=== PATIENT | male | born 1995 | race Caucasian/White ===

== ENCOUNTER → 2018-03-31 13:05 | Outpatient (CLI) | payer BC, SELFPAY ==
[2018-04-03 20:07] LABS: QNTFERON TB Ag Minus Nil Value 0.02 IU/mL (.); QNTFERON TB Ag Value 0.04 IU/mL (.); QNTFERON TB Mitogen Value > 10.00 IU/mL (.); QNTFERON TB Nil Value 0.02 IU/mL (.)
[2018-04-04 10:51] LABS: QNTIFERON TB Gold Negative (Negative)
== END ==
PROVIDERS: Family Provider Family Medicine; PCP Family Medicine; Visit Provider Family Medicine
DX: Z11.1 Encounter for screening for respiratory tuberculosis (principal)
CPT/HCPCS: 36415; 86480

== ENCOUNTER → 2019-01-05 12:22 | Outpatient (CLI) | payer BC, SELFPAY ==
--- NOTE | 2019-01-05 12:28 | US_ITS ---
STUDY: Ultrasound neck soft tissues REASON FOR EXAM: Male, 23 years old. Lump TECHNIQUE: Grayscale and color Doppler sonography of the right neck soft tissues. Impression and left neck soft tissues for comparison. COMPARISON: None. FINDINGS: Right neck palpable lump, submandibular, lymph node measuring 13 x 9 x 20 mm. Small adjacent lymph node measuring approximately 7 mm, and another measuring approximately 11 mm. Adjacent, probably the submandibular gland, measuring approximately 3.5 x 1.6 x 3.1 cm. In the left neck the submandibular gland measures approximate 4.4 x 1.8 x 2.9 cm. Each submandibular gland has homogeneous normal features without apparent inflammation on Doppler views. US/Head/Neck Soft Tissue IMPRESSION: Mildly enlarged lymph node overlying the right submandibular gland. Each submitted to better gland is relatively symmetric and normal features. Electronically Signed: Elias Ngo MD at 13:46 EST Tel , Service support ,
== END ==
PROVIDERS: Family Provider Family Medicine; PCP Family Medicine; Referring Provider Family Medicine; Visit Provider Family Medicine
DX: K11.21 Acute sialoadenitis (principal)
CPT/HCPCS: 76536

== ENCOUNTER → 2019-01-19 13:42 | Outpatient (CLI) | payer BC, SELFPAY ==
[2019-01-19 14:45] LABS: Absolute Lymphocyte Count 1.78 X10^3/ul (0.83-4.51); Absolute Neutrophil Count 2.1 X10^3/uL (2.0-7.7); Basophil# 0.01 X10^3/uL; Basophil% 0.2 % (0-1); Hematocrit 46.1 % (40-54); Hemoglobin 15.4 g/dl (13.0-16.5); Lymphocyte # 1.78 X10^3/ul (4.0); Lymphocyte % 41.3 % (19-41); Mean Corp Hgb Conc 33.4 g/gl (32-36); Mean Corpuscular Hgb 28.8 pg (27.0-32.0); Mean Corpuscular Volume 86.3 fL (80-94); Mean Platelet Vol. 9.7 fl (6.2-12.0); Monocyte# 0.39 X10^3/uL; Neutrophil # 2.13 X10^3/uL (2.7-7.7); Neutrophil % 49.5 % (47-70); Platelet Count 225 K/mm3 (150-450); RBC Distribution Width CV 12.4 % (11.6-14.6); RBC Distribution Width SD 39.6 fl (35.1-43.9); Red Blood Count 5.34 M/mm3 (4.6-6.2); White Blood Count 4.3 K/mm3 (4.4-11.0)
[2019-01-19 14:49] LABS: POSITIVE COUNT NO; POSITIVE DIFFERENTIAL NO; POSITIVE MORPHOLOGY NO
[2019-01-19 14:50] LABS: Erythrocyte Sedimentation Rate 1 mm/hr (0-15)
[2019-01-19 15:10] LABS: ALB/GLOB Ratio 1.5 RATIO (0.9-2.4); AST(SGOT) 21 U/L (15-37); Alanine Aminotransfer ALT/SGPT 29 U/L (16-61); Albumin, Serum 4.5 g/dL (3.2-5.0); Alkaline Phosphatase 69 U/L (45-117); Anion Gap 7 (5-15); BUN 14 mg/dL (7-18); BUN/Creat Ratio 15.2 RATIO (10-20); CRP < 2.90 mg/L (0.0-3.0); Calcium,Total 9.1 mg/dL (8.5-10.1); Chloride 105 mmol/L (98-107); Creatinine, Serum 0.92 mg/dL (0.70-1.30); EST Glomerular Filtration Rate 108 mL/min (>60); Est Glom Filt Rate - Afr Amer 131 mL/min (>60); Globulin 3.1 g/dL (2.2-4.2); Glucose 61 mg/dL (74-106); Potassium 3.7 mmol/L (3.5-5.1); Protein, Total 7.6 g/dL (6.4-8.2); Sodium Level 141 mmol/L (136-145)
== END ==
PROVIDERS: Family Provider Family Medicine; PCP Family Medicine; Visit Provider Family Medicine
DX: R22.1 Localized swelling, mass and lump, neck (principal)
CPT/HCPCS: 36415; 80053; 85025; 85652; 86140

== ENCOUNTER → 2019-01-22 11:48 | Outpatient (CLI) | payer BC, SELFPAY ==
[2019-01-22 17:39] LABS: Free T3 3.6 pg/mL (2.18-3.98); Thyroid Stim Hormone (TSH) 1.28 uIU/mL (0.358-3.74)
== END ==
PROVIDERS: Family Provider Family Medicine; PCP Family Medicine; Visit Provider Family Medicine
DX: R22.1 Localized swelling, mass and lump, neck (principal); R63.4 Abnormal weight loss
CPT/HCPCS: 36415; 84439; 84443; 84481

== ENCOUNTER → 2019-03-30 | Outpatient (CLI) | payer BC, SELFPAY ==
--- NOTE | 2019-03-30 | IMM_PTH ---
PATIENT: RICCO LAURENT LOC: [facility] U#:[id number] AGE/SX: 23/M ROOM: RE03/30/[address]: Dr. Camilo Jovel DO : 1995 BED: DIS: 03/30/2019 SPEC #: [id number] RECD: 04/01/19 10:38 STATUS: HENOK RESocrates #: [id number] ESTEFANI: 03/30/19 00:[address]: Camilo Jovel DEPT: IMMUNOHISTOCHEMISTRY RECD BY: Marah Dela Cruz Tissues: Skin of back, NOS Procedures: MACRO (add) Vimentin (add) Pankeratin (initial) MELAN-A (add) P40 (add) S-100 (add) PHYSICIAN & INSTITUTION [place] [id number] SPECIMEN INFORMATION: Tissue Source: Right upper back Clinical Info: Enlarging nevus Specimen Number: [id number] CPT code: 45246, 86320 x5 METHODOLOGY: Deparaffinized sections of prefer/formalin-fixed tissue or PAP/DQ stained slides are incubated with monoclonal/polyclonal antibodies/oligonucleotide probes. Localization is made via biotin free immunoperoxidase method. Appropriate controls are performed and reacted as expected. Results on target cell population are indicated in the following table: RESULTS: ANTIBODY / CLONE RESULT AE1-3 (AE1/AE3/PCK26) negative P40 (BC28) negative Vimentin (V9) positive S-100 (4C4.9) positive Melan A (A103) positive, dim Macro (HAM-56) negative These tests were developed and their performance characteristics determined by [facility]. They may not have been cleared or approved by the U.[place]. Food and Drug Administration. The FDA has determined that such clearance or approval is not necessary. INTERPRETATION: Right upper back, punch biopsy: Intradermal nevus. AM:aleksandra 04/02/19
--- NOTE | 2019-03-30 15:10 | LES_PTH ---
PATIENT: RICCO LAURENT LOC: [facility] U#:[id number] AGE/SX: 23/M ROOM: RE03/30/[address]: Dr. Camilo Jovel DO : 1995 BED: DIS: 03/30/2019 SPEC #: [id number] RECD: 03/30/19 15:10 STATUS: HENOK LUKE #: [id number] ESTEFANI: 03/30/19 15:[address]: Camilo Jovel DEPT: SURGICAL PATHOLOGY RECD BY: Rahat Olmos Tissues: Skin of back, NOS Procedures: Surgery Specimen Level IV HEADER OPERATION: Punch biopsy PRE-OP DIAGNOSIS: Enlarging nevus TISSUE SUBMITTED: 5 mm punch right upper back (favor benign) MICROSCOPIC DIAGNOSIS Right upper back skin lesion, punch biopsy: Consistent with intradermal nevus. AM:aleksandra 04/02/19 COMMENT Immunohistochemistry ([id number]) supports the above diagnosis. MICROSCOPIC DESCRIPTION Slides are reviewed. GROSS DESCRIPTION Received is one container labeled with the patient's name and not further designated. The specimen consists of a raisinoid fragment of valdez tissue measuring 0.6 x 0.3 x 0.1 cm. The specimen is totally submitted in one cassette. / AM:aleksandra 03/31/19 TC:5 CPT: 68731
== END | disposition home or self-care (01) ==
PROVIDERS: Family Provider Family Medicine; PCP Family Medicine; Referring Provider Family Medicine; Visit Provider Family Medicine
DX: D22.5 Melanocytic nevi of trunk (principal)
CPT/HCPCS: 88305; 88341; 88342

== ENCOUNTER → 2019-11-12 14:15 | Outpatient (CLI) | payer BC, SELFPAY | PROVIDERS: Family Provider Family Medicine; PCP Family Medicine; Visit Provider Family Medicine | DX: J06.9 Acute upper respiratory infection, unspecified (principal) | CPT/HCPCS: 87633 ==

== ENCOUNTER → 2020-08-11 09:08 | Outpatient (CLI) | payer BC, SELFPAY ==
[2020-08-11 12:20] LABS: Cholesterol 194 mg/dL (200); High Density Lipoprotein 66 mg/dL; Triglycerides 29 mg/dL; Very Low Density Lipoprotein 6 mg/dL (5-40)
[2020-08-11 12:48] LABS: HIV - WCH Non-Reactive (Nonreactive)
[2020-08-14 03:06] LABS: Chlamydia By Nucleic Acid AMP Negative (Negative)
[2020-08-14 15:22] LABS: Gonococcus By Nucleic Acid AMP Negative (Negative)
[2020-08-17 02:04] LABS: Rapid Plasmin Reagin (RPR) NONREACTIVE (NONREACTIVE)
== END ==
PROVIDERS: PCP Family Medicine; Visit Provider Family Medicine
DX: Z20.9 Contact with and (suspected) exposure to unspecified communicable disease (principal); Z82.49 Family history of ischemic heart disease and other diseases of the circulatory system
CPT/HCPCS: 36415; 80061; 86592; 86703; 87491; 87591

== ENCOUNTER → 2021-06-12 16:43 | Outpatient (CLI) | payer OTHER, BC, SELFPAY ==
[2021-06-12 17:16] LABS: Absolute Lymphocyte Count 1.67 X10^3/uL (0.83-4.51); Absolute Neutrophil Count 3.6 X10^3/uL (2.0-7.7); Basophil# 0.02 X10^3/uL; Basophil% 0.3 % (0-1); Eosinophils% 1.7 % (0-5); Hematocrit 43.7 % (40-54); Hemoglobin 14.8 g/dL (13.0-16.5); Lymphocyte # 1.67 X10^3/ul (0.83-4.51); Lymphocyte % 28.5 % (19-41); Mean Corp Hgb Conc 33.9 g/dL (32-36); Mean Corpuscular Hgb 28.7 pg (27.0-32.0); Mean Corpuscular Volume 84.9 fL (80-94); Monocyte# 0.46 X10^3/uL; Monocyte% 7.8 % (0-10); NRBC Flagged by Analyzer 0 % (0-5); Neutrophil # 3.58 X10^3/uL (2.7-7.7); Neutrophil % 61.2 % (47-70); Platelet Count 302 K/mm3 (150-450); RBC Distribution Width CV 11.9 % (11.6-14.6); RBC Distribution Width SD 36.7 fl (35.1-43.9); Red Blood Count 5.15 M/mm3 (4.6-6.2); White Blood Count 5.9 K/mm3 (4.4-11.0)
[2021-06-19 19:27] LABS: EBV Acute VCA IgM < 36.0 U/mL (0.0-35.9)
== END ==
PROVIDERS: PCP Family Medicine; Referring Provider Family Medicine; Visit Provider Family Medicine
DX: R59.9 Enlarged lymph nodes, unspecified (principal)
CPT/HCPCS: 36415; 85025; 86665

== ENCOUNTER → 2021-07-19 | Outpatient (CLI) | payer OTHER, BC, SELFPAY | END | disposition home or self-care (01) | LOC: LABSPEC 07-20 07:24 | PROVIDERS: PCP Family Medicine; Referring Provider Physician Assistant; Visit Provider Physician Assistant | DX: U07.1 COVID-19 (principal) | CPT/HCPCS: 87635; U0005; U0003 ==

== ENCOUNTER 2021-07-23 16:38 | Outpatient (CLI) | payer OTHER, BC, SELFPAY ==
[2021-07-23] MEDS: 0.9% Saline Lock 10 ML Syringe IV (16:55)
[2021-07-23 17:00] VITALS: BP 127/63; PULSE 81; RESP 16; TEMP 37.3; O2SAT 97; BMI 25.9
[2021-07-23 17:40] VITALS: BP 119/79; PULSE 79; RESP 16; TEMP 36.9; O2SAT 99
[2021-07-23 18:33] VITALS: BP 129/87; PULSE 81; RESP 16; TEMP 37.1; O2SAT 100
== END 2021-07-23 18:40 | disposition home or self-care (01) ==
LOC: ICUOUT 16:42 → MS2 16:43
PROVIDERS: PCP Family Medicine; Referring Provider Nurse Practitioner Acute Care; Visit Provider Nurse Practitioner Acute Care
DX: Z23 Encounter for immunization (principal); U07.1 COVID-19
CPT/HCPCS: J7050; M0243; A4216; Q0244

== ENCOUNTER 2024-02-26 16:00 | Outpatient (RCR) | payer OTHER, SELFPAY ==
--- NOTE | 2024-01-20 17:12 | HP.PTEVAL_ITS ---
Patient's Visit Information Visit Information Visit Information: RICCO LAURENT is a 28 year old M referred to Physical Therapy by Dr. Hansel Houston MD with a diagnosis of POSTERIOR TIBIAL TENDINITIS ,LEFT LEG ,PAIN IN RIGHT FOOT. Date of Evaluation: 01/20/24 Physical Therapist: Jose Elias Dugan, PT, Cert MDT, OCS Visit Plan Frequency: 2x /Week Duration: 4 Weeks Plan: PT INTERVENTIONS OKAY TO TRY US /ESTIM TTP (PTTD), STRENGTHENING ANKLE STABILIZERS ,INTRINSIC ARCH STRENGTHENING ,PROPRIOCEPTION ,STICK /FOAM ROLLING CALF Subjective Subjective: This 28 y/o male presents to physical therapy with foot arch pain medial aspect. Patient has had medial arch pain for couple years . Noticed arch collapsing worse on right . Patient seen polymerization engineer provided orthotics. Patient symptoms believe to be from working out calf raises. Initially had difficulty with walking . Seen Dr Houston recommended PT . If doesnt get better may see specialist. Patient had x-rays-. Aggravating factors standing ,walking ,lifting squatting or lift weights. Pain Described dull ache pain. Alleviating factors rest. Patient denies paresthesia/tingling-. Patient able to sleep. Patient sits a lot 5-6 hrs a day. Patient goals to decrease pain and workout without pain and general walking. Patient condition affects QOL and function with walking. SOCAIL: single VOCATION: Computer IT system administor Pain Right Foot: Pain Intensity (Out of 10): 4 Pain Intensity Range: 10 Objective Objective: POSTURE: ( frontal plane) pes planus calcaneal valgus ,forefoot lateral PALPATION:tender TTP posterior, G-S tender GAIT: normal pamela calcaneal valgus on left > right forefoot lateral AROM: dorsiflexion 10 degrees ,eversion 10 degrees ,inversion 35 degrees ,plantar flexion 65 degrees MMT: ankle stabilizers ankle dorsiflexion 5/5 ,posterior tibialis 4/5 ,peroneus 5/5 ,G-S 4/5 no pain PROPRIOCEPTION: decreased right > LEFT Balance/Special Test Scores Lower Extremity Functional Score: 46 Goals Goal 1:: Patient to be I with HEP for foot ankle Goal Time Frame: 4-6 Weeks Goal 2:: Patient to demonstrate 50% improvement with less pain and improved function Goal Time Frame: 4-6 Weeks Goal 3:: Patient to normalize gait 90% with extended walking . Goal Time Frame: 4-6 Weeks Goal 4:: Patient to improve LFES score by 5-10 points to improve QOL and function Goal Time Frame: 4-6 Weeks Rehabilitation Potential Physical Therapy Diagnosis: This patient has posterior tibialis tendonitis (P TTD) with pes planus with calcaneal valgus with collapsing arch worse on right pain worsen with extended walking/standing and pain with working out affects general activity and difFiculty to work out or run thus benefit from skilled PT Rehabilitation Potential: Good Anticipated Interventions Patient/Client Instruction: Educate patient on: Condition and Plan of Care For the Purpose of:: To decrease pain, To increase ROM, To improve muscle performance and motor function, To improve ability to perform ADL's, To increase tolerance to activity/condition/position, To improve ability of physical actions for home/community/work/leisure, To improve gait and locomotor functions, To improve health of tissue, To decrease soft tissue restriction, To increase flexibility/ROM and To prevent re-injury Therapeutic Exercise to Include: Strength training, Balance training, Postural training, Flexibilty training and Active ROM For the Purpose of:: To decrease pain, To increase ROM, To improve nutrient delivery to tissue, To increase oxygenation perfusion, To improve muscle performance and motor function, To increase tolerance to activity/condition/position, To improve ability of physical actions for home/community/work/leisure, To improve health of tissue, To decrease soft tissue restriction and To increase flexibility/ROM IF ES: Yes Cryotherapy (ice pack, ice massage): Yes Ultrasound (thermal/non thermal): Yes For the Purpose of:: To decrease pain, To decrease swelling/inflammation, To improve nutrient delivery to tissue, To increase oxygenation perfusion, To improve health of tissue, To decrease soft tissue restriction and To increase flexibility/ROM Text: Thank you for the opportunity to evaluate your patient. For Medicare and Medicare HMO plans, please review the plan of care and approve it. It will need to be FAXED BACK to us at [phone] for Medicare purposes. For Medicare only, by signing this I certify the plan of care. Please let me know if there are questions or concerns regarding this plan of care. Physician Signature: Date:
--- NOTE | 2024-06-21 13:58 | HP.PTDCNRP_ITS ---
Patient Information Patient Information: RICCO LAURENT was seen in my office for initial evaluation on 01/20/24. The following Plan of Care was established for this patient: POC Established Initial Frequency: 2x /Week Initial Duration: 4 Weeks Anticipated Interventions Patient/Client Instruction: Educate patient on: Condition and Plan of Care For the Purpose of:: To decrease pain, To increase ROM, To improve muscle performance and motor function, To improve ability to perform ADL's, To increase tolerance to activity/condition/position, To improve ability of physical actions for home/community/work/leisure, To improve gait and locomotor functions, To improve health of tissue, To decrease soft tissue restriction, To increase flexibility/ROM and To prevent re-injury Therapeutic Exercise to Include: Strength training, Balance training, Postural training, Flexibilty training and Active ROM For the Purpose of:: To decrease pain, To increase ROM, To improve nutrient delivery to tissue, To increase oxygenation perfusion, To improve muscle performance and motor function, To increase tolerance to activity/condition/po sition, To improve ability of physical actions for home/community/work/leisure, To improve health of tissue, To decrease soft tissue restriction and To increase flexibility/ROM IF ES: Yes Cryotherapy (ice pack, ice massage): Yes Ultrasound (thermal/non thermal): Yes For the Purpose of:: To decrease pain, To decrease swelling/inflammation, To improve nutrient delivery to tissue, To increase oxygenation perfusion, To improve health of tissue, To decrease soft tissue restriction and To increase flexibility/ROM Last Seen Last Seen: This patient was last seen in our office . Pertinent comments regarding their Physical therapy will appear below: Patient seen for PT for left foot pain PTTD doing well with strengthening intrinsics arch and proprioception thus d/c At this point I will be discontinuing this patient from physical therapy. I would be happy to see this patient again in the future if found appropriate by the physician. Thank you! Jose Elias Dugan, PT, Cert MDT, OCS Balance/Gait/Functional tests Balance/Special Test Scores Lower Extremity Functional Score: 46
== END 2024-02-26 19:00 | disposition home or self-care (01) ==
LOC: PT 16:00
PROVIDERS: PCP Family Medicine; Referring Provider Orthopaedic Surgery; Visit Provider Orthopaedic Surgery
DX: M76.822 Posterior tibial tendinitis, left leg (principal); M79.671 Pain in right foot
CPT/HCPCS: 97110; 97161; 97530

== ENCOUNTER → 2025-06-16 | Outpatient (CLI) | payer OTHER, SELFPAY ==
[2025-06-16 15:28] LABS: Hematocrit 47.3 % (40-54); Hemoglobin 16.0 g/dL (13.0-16.5); Immature Granulocytes Count 0.040 X10^3/uL (0.0-0.0); Mean Corp Hgb Conc 33.8 g/dL (32-36); Mean Corpuscular Volume 86.5 fL (80-94); Mean Platelet Vol. 9.3 fl (6.2-12.0); NRBC Flagged by Analyzer 0 % (0-5); Platelet Count 290 K/mm3 (150-450); RBC Distribution Width CV 11.9 % (11.6-14.6); RBC Distribution Width SD 37.8 fl (35.1-43.9); Red Blood Count 5.47 M/mm3 (4.6-6.2); White Blood Count 5.8 K/mm3 (4.4-11.0)
[2025-06-16 16:46] LABS: AST(SGOT) 27 U/L (<=37); Alanine Aminotransfer ALT/SGPT 40 U/L (<=46); Albumin, Serum 4.9 g/dL (3.5-5.0); Alkaline Phosphatase 59 U/L (40-129); Anion Gap 14 (5-15); BUN 12 mg/dL (4-19); BUN/Creat Ratio 12.3 RATIO (10-20); Calcium,Total 10.4 mg/dL (7.6-11.0); Carbon Dioxide 25.1 mmol/L (21.0-32.0); Chloride 103 mmol/L (98-108); Cholesterol 204 mg/dL (<=200); Globulin 2.8 g/dL (2.2-4.2); Glucose 90 mg/dL (70-99); Low Density Lipoprotein Calc. 133 mg/dL; Potassium 4.1 mmol/L (3.3-5.1); Triglycerides 74 mg/dL; Very Low Density Lipoprotein 15 mg/dL (5-40); cholesterol:hdl ratio screen 3.60
== END | disposition home or self-care (01) ==
LOC: BFHLAB 11:45
PROVIDERS: PCP Family Medicine; Visit Provider Family Medicine
DX: Z00.00 Encounter for general adult medical examination without abnormal findings (principal)
CPT/HCPCS: 36415; 80053; 80061; 85025